=== PATIENT | female | born 2005 | race Caucasian/White ===

== ENCOUNTER 2024-12-25 11:35 | Inpatient (IN) | payer OTHER ==
[2024-12-25 12:03] LABS: #Basophils 0.03 10x3/uL (0.0-0.2); #Eosinophils Less than 0.03 10x3/uL (0.0-0.5); #Monocytes 0.70 10x3/uL (0.0-1.1); #Neutrophils 16.41 10x3/uL (1.5-8.4); %Basophils 0.2 % (0.0-2.0); %Eosinophils 0.1 % (0.0-6.0); %Lymphocytes 8.7 % (18.0-47.0); %Monocytes 3.7 % (0.0-10.0); %Neutrophils 86.7 % (40.0-75.0); Hematocrit 36.4 % (34.9-44.5); Hemoglobin 12.5 g/dL (12.0-15.5); Mean Corpuscular Hemoglobin 27.5 pg (27.0-33.0); Mean Corpuscular Volume 80.0 fL (81.6-98.3); Platelet Count 275 10x3/uL (150-450); Red Blood Cell (RBC) Count 4.55 10x6/uL (3.90-5.03); White Blood Cell (WBC) Count 18.91 10x3/uL (3.5-10.5)
[2024-12-25 12:22] LABS: ALT (SGPT) 10 U/L (Less than 34); AST (SGOT) 15 U/L (11-34); Albumin 4.1 g/dL (3.1-4.5); Alkaline Phosphatase 71 U/L (40-110); Anion Gap 21 mmol/L (10-20); BUN (Urea Nitrogen) 6 mg/dL (7.0-18.7); Bilirubin, Total 0.4 mg/dL (0.3-1.2); Calc. Creatinine Clearance 0 mL/min (70-130); Calcium 9.5 mg/dL (7.8-10.44); Carbon Dioxide 18 mmol/L (22-29); Chloride 106 mmol/L (98-107); Globulin 3.7 g/dL (2.4-3.5); Glucose 131 mg/dL (70-105); Lipase 41 U/L (8-78); Potassium 3.7 mmol/L (3.5-5.1); Sodium 141 mmol/L (136-145)
[2024-12-25 12:51] LABS: Glucose, Urine (Dipstick) Normal (Negative); Leukocyte 100 (Negative); Protein, Urine (Dipstick) 100 mg/dl (Neg-Trace); Specific Gravity, Urine 1.025 (1.005-1.030)
[2024-12-25 13:06] LABS: Bacteria/HPF 1+ HPF (None Seen); CAUTI Indications for Culture Pelvic or flank pain; RBC/HPF None Seen HPF (0-3); Urine Culture Reflex No No
[2024-12-25 13:10] LABS: Magnesium 1.8 mg/dL (1.6-2.6)
[2024-12-25] MEDS ORDERED: Droperidol 5 MG/2 ML VIAL ONE ×2 (13:30→18:17)
[2024-12-25] MEDS ORDERED: Acetaminophen 500 MG TAB PO PRN (20:05)
[2024-12-25] MEDS ORDERED: diphenhydrAMINE 25 MG CAP PO PRN (20:09)
[2024-12-25 21:41] LABS: Cocaine Metabolite Screen Negative (Negative); THC/Cannabinoid Screen PRELIM POSITIVE (Negative); Tricyclic Screen Negative (Negative)
[2024-12-25] MEDS: Famotidine/PF 20 mg/2ml Vial SLOW IVP SCH (22:19)
[2024-12-25] MEDS: Magnesium 2 GM/50 ML(in water) 2 GM in Premix 1 BAG IVPB SCH (22:20)
[2024-12-26] MEDS: Ondansetron PF 4 MG/2 ML Vial IVP PRN (00:15)
[2024-12-26] MEDS: diphenhydrAMINE 50 MG/ML VIAL IVP PRN (05:37)
[2024-12-26] MEDS: Famotidine/PF 20 mg/2ml Vial SLOW IVP SCH (07:25)
[2024-12-26] MEDS: Metoclopramide HCl 10 MG (2 mL) VIAL IVP PRN (07:25)
[2024-12-26 07:59] VITALS: BP 150/83; TEMP 98
[2024-12-26] MEDS ORDERED: Pantoprazole 40 MG VIAL IVP SCH (09:00)
== END 2024-12-26 07:55 | disposition left against medical advice (07) | DRG 832 ==
LOC: CSHERS 11:35 → CSHPP 21:19
PROVIDERS: ADMIT Obstetrics & Gynecology; ATTEND Obstetrics & Gynecology
DX: O21.0 Mild hyperemesis gravidarum (principal); E87.20 Acidosis, unspecified; O99.830 Other infection carrier state complicating pregnancy; O99.612 Diseases of the digestive system complicating pregnancy, second trimester; Z3A.15 15 weeks gestation of pregnancy; E83.42 Hypomagnesemia; D72.829 Elevated white blood cell count, unspecified; K21.9 Gastro-esophageal reflux disease without esophagitis; R82.71 Bacteriuria; O99.282 Endocrine, nutritional and metabolic diseases complicating pregnancy, second trimester; O99.891 Other specified diseases and conditions complicating pregnancy
CPT/HCPCS: 36415; 80053; 80306; 81001; 83605; 83690; 83735; 85025; 87040; 87086; 93005; 96361; 96374; 96375; 96376; J1200; J1308; J1790; J2060; J2405; J2765; J3475; J7120